=== PATIENT | male | born 2000 | race Caucasian/White ===

== ENCOUNTER 2025-01-26 12:39 | Emergency (ER) | payer MEDICAID, SELFPAY ==
[2025-01-26 12:40] VITALS: BMI 25.6
[2025-01-26 13:03] VITALS: BP 128/74; PULSE 71; RESP 18; TEMP 36.9; O2SAT 99
--- NOTE | 2025-01-26 13:24 | EDNOTE_ITS ---
<Statement entered by Paula Carrillo MD - 01/26/25 17:57> As co-signing physician, I was present and available for consult prn. I concur with the plan and care as documented by the midlevel provider. ED Dental RME/HPI General Chief complaint: Dental/Oral/Throat Stated complaint: MOUTH INFECTION x 10 DAYS, BROKE TOOTH LAST NIGHT Time Seen by Provider: 01/26/25 12:45 Source: patient Arrival date/time: 01/26/25 12:39 24-year-old male with no known medical history presents to the emergency room with a chief complaint of multiple broken teeth in his mouth x 10 days Mode of arrival: ambulatory Limitations: no limitations Related Data Previous Rx's ?Medication ?Instructions ?Recorded clindamycin HCl 300 mg capsule 300 mg PO TID 7 days #2 1 caps 01/26/25 Allergies Allergy/AdvReac Type Severity Reaction Status Date / Time cefazolin Allergy Severe HIVES Verified 01/26/25 12:42 Review of Systems Review of Systems Systems Reviewed: All systems reviewed, normal except as documented Constitutional Constitutional: Reports system reviewed and no additional complaints, except as documented, Denies fatigue, Denies fever(s), Denies headache(s) and Denies weakness Eyes Eyes: Reports system reviewed and no additional complaints, except as documented, Denies blurry vision and Denies change in vision ENT Ears, Nose, Mouth, and Throat: Reports system reviewed and no additional complaints, except as documented, Reports dental pain, Denies otalgia, Denies headache(s), Denies nasal congestion, Denies throat swelling and Denies vertigo Cardiovascular Cardiovascular: Reports system reviewed and no additional complaints, except as documented, Denies chest pain, Denies dyspnea and Denies dyspnea on exertion Respiratory Respiratory: Reports system reviewed and no additional complaints, except as documented, Denies chest congestion, Denies cough, Denies dyspnea, Denies dyspnea on exertion and Denies wheezing Gastrointestinal Gastrointestinal: Reports system reviewed and no additional complaints, except as documented, Denies abdominal pain, Denies cramping, Denies nausea and Denies vomiting Genitourinary Genitourinary: Reports system reviewed and no additional complaints, except as documented, Denies dysuria and Denies hematuria Musculoskeletal Musculoskeletal: Reports system reviewed and no additional complaints, except as documented and Denies back pain Integumentary/Breasts Skin/Breast: Reports system reviewed and no additional complaints, except as documented and Denies wounds Neurologic Neurologic: Reports system reviewed and no additional complaints, except as documented, Denies confusion, Denies headache(s), Denies lack of coordination, Denies vertigo and Denies weakness Psychiatric Psychiatric: Reports system reviewed and no additional complaints, except as documented, Denies anxiety, Denies confusion, Denies depression, Denies paranoia, Denies suicidal ideation and Denies tactile hallucinations Endocrine Endocrine: Reports system reviewed and no additional complaints, except as documented and Denies fatigue Hematologic/Lymphatic Hematologic/Lymphatic: Reports system reviewed and no additional complaints, except as documented and Denies lymphadenopathy Allergic/Immunologic Allergic/Immunologic: Reports system reviewed and no additional complaints, except as documented, Denies throat swelling, Denies urticaria and Denies wheezing Past Medical History Social History SMOKING STATUS: Never smoker ED Exam General Limitations: Present no limitations General appearance: Present alert and in no apparent distress Head Head exam: Present atraumatic Eye Eye exam: Present normal appearance, PERRL and EOMI ENT ENT exam: Present normal exam, normal oropharynx and mucous membranes moist Expanded ENT Exam Mouth exam: Absent trismus, lip swelling or tongue normal Teeth exam: Present dental caries, fractured tooth # and dental tenderness #; Absent gingival swelling Neck Neck exam: Present normal inspection, full ROM and trachea midline Chest Chest inspection: Present normal inspection and symmetric chest wall rise Respiratory Respiratory exam: Present normal lung sounds bilaterally Cardiovascular Cardiovascular exam: Present regular rate, normal rhythm and normal heart sounds Abdominal Exam Abdominal exam: Present soft and normal bowel sounds Extremities Exam Extremities exam: Present normal inspection and full ROM Back Exam Back exam: Present normal inspection and full ROM Neurological Exam Neurological exam: Present alert, oriented X3 and CN II-XII intact Psychiatric Psychiatric exam: Present normal affect and normal mood Skin Skin exam: Present warm, dry, intact and normal color Course Quality Measures none Orders Category Date Time Status Ketorolac Inj [Toradol Inj] Med 01/26/25 13:04 Discontinued 30 mg IM X1 ONE Vital Signs Vital signs: Vital Signs Temperature 98.4 F 01/26/25 13:03 Pulse Rate 71 01/26/25 13:03 Respiratory Rate 18 01/26/25 13:03 Blood Pressure 128/74 01/26/25 13:03 Pulse Oximetry (%) 99 01/26/25 13:03 Oxygen Delivery Method Room Air 01/26/25 13:03 Dental / Oral MDM Narrative MDM Narrative:: 24-year-old male with no known medical history presents to the emergency room with a chief complaint of multiple broken teeth in his mouth x 10 days Patient is hemodynamically stable and in no apparent distress Physical examination shows multiple broken teeth in the upper part of the patient's mouth. There is no trauma. Antibiotics are sent to the patient's pharmacy and the patient was educated to follow-up with his dentist Pain medication was also given to the patient Patient was discharged and educated to follow-up with primary care provider in the next 24 to 48 hours and return to the emergency room for any evidence of worsening signs or symptoms Patient data External records reviewed:: [facility] previous records Clinical information provided by:: patient Social determinants that could affect healthcare access:: none Patient has the following chronic illnesses:: No chronic illness How is presenting disease/condition affected by chronic disease/condition?: no chronic disease Evaluation data The following diagnostics were reviewed and interpreted by me:: lab results and radiology exam(s) Lab and/or radiology exams considered but not ordered:: Labs and radiology exams considered and ordered Interpretation Summary: N/A Medications / Prescriptions Medications or Prescriptions considered but not ordered:: Medication given Medication administrations:: Medication Administration History Discontinued Medications Ketorolac Tromethamine (Ketorolac Inj 60 Mg/2 Ml Vial) 30 mg IM X1 ONE Stop: 01/26/25 13:05 Last Admin: 01/26/25 13:23 Dose: Not Given Documented By: JESUSITA Non-Admin Reason: Patient Refused Medication given Consultations Consultation(s) initiated? (list below): No Diagnosis Dental Differential Diagnosis: dental caries, toothache, dental abscess and fracture of tooth Most likely diagnosis given after review of the tests above:: Fracture of tooth Admission Indicated Admission indicated?: not indicated Admission Request Was there a request for admission?: No Disposition Plan Disposition Plan: Discharge Discharge Attestation Discharge Attestation: The patient and all family members were given an opportunity to ask questions and understood the discharge instructions. Discharge instructions specifically effects, indications for sooner follow up or return to the emergency department, and the expected course of current diagnosis. Patient condition: Stable Discharge Plan Plan Patient Disposition: HOME (Self Care) Discharge Disposition comment: Stable Prescriptions/Referrals Prescriptions/Med Rec: New clindamycin HCl 300 mg capsule 300 mg PO TID 7 Days Qty: 21 0RF Problem List Clinical Impression: Fracture of tooth Patient/Caregiver Discharge Instructions Education Materials: ED Dental Trauma Additional Instructions: Please follow-up with your dentist in the next 24 to 48 hours You have multiple fractured teeth. These teeth will need to be removed or managed by the dentist Antibiotics are sent to your pharmacy please pick them up and take them as indicated For any evidence of worsening signs or symptoms return to emergency room immediately Print Language: Telugu Stand Alone Forms: Anabela Award Info., Work/School Release, Patient Portal Info Letter PA/HAM ROLLING MACHINE OPERATOR Supervising Physician PA/HAM ROLLING MACHINE OPERATOR Supervising Physician: Dr. Collins
== END 2025-01-26 13:37 | disposition home or self-care (01) ==
PROVIDERS: Emergency Provider Emergency Medicine
DX: S02.5XXA Fracture of tooth (traumatic), initial encounter for closed fracture (principal); X58.XXXA Exposure to other specified factors, initial encounter
CPT/HCPCS: 99281

== ENCOUNTER 2025-02-19 12:25 | Emergency (ER) | payer SELFPAY ==
[2025-02-19 12:26] VITALS: BMI 26.2
[2025-02-19 12:36] VITALS: BP 149/76; PULSE 74; RESP 19; TEMP 36.8; O2SAT 98
--- NOTE | 2025-02-19 12:39 | XR_ITS ---
Examination: CT brain head without contrast. 2-D sagittal coronal reconstructions Date and time of exam: February 19, 2025, 1330 hours INDICATIONS: Ground-level fall today with injury of the head, laceration head CTDI: vol (mGy): 51.2 DLP: (mGycm): 1044 Technique: Multiple CT axial sections of the brain have been obtained, 5 mm slice thickness. Contrast has not been administered. 2-D sagittal, coronal reconstructions have been obtained Low dose protocols were performed. One or more of the following dose reduction techniques were used; automated exposure control, adjustment of the mA and/or KV according to patient size, use of iterative reconstruction technique. Findings: No significant ventricular enlargement. Intra-axial or extra-axial hemorrhage density is not seen. No mass effect or midline shift Basal cisterns are not remarkable. Fourth ventricle is midline. Cranial vault intact. Impression: Negative for acute hemorrhage, mass effect or midline shift
--- NOTE | 2025-02-19 12:39 | XR_ITS ---
Examination: CT cervical spine without contrast 2-D sagittal reconstructions 2-D coronal reconstructions 3-D reconstructions. Exam date and time: February 19, 2025, 1330 hours INDICATIONS: Ground-level fall today with injury to the neck, neck pain CTDI:vol (mGy) 16.2 DLP: (mGycm) 395 Technique: Multiple 2 mm axial sections of the cervical spine have been obtained. The coronal and sagittal reconstructions have been obtained. 3-D reconstructions have been obtained. Low dose protocols were performed. One or more of the following dose reduction techniques were used; automated exposure control, adjustment of the mA and/or KV according to patient size, use of iterative reconstruction technique. Findings: Axial sections demonstrate intact base of the skull. C1 exhibit satisfactory relationship to the odontoid. No acute cervical vertebral body fracture seen. Alignment posterior spinous processes satisfactory. Impression: No acute cervical fracture.
[2025-02-19] MEDS: DIPHTH,PERTUSS(ACELL),TET VAC 0.5 ML SYR- ADULT IMi (12:52)
[2025-02-19] MEDS: LIDOCAINE/PRILOCAINE CR 5GM 5 GM TUBE TOP (12:52)
--- NOTE | 2025-02-19 14:03 | EDNOTE_ITS ---
ED Head Injury RME/HPI General Chief complaint: Head Injury Stated complaint: head injury Time Seen by Provider: 02/19/25 12:35 Arrival date/time: 02/19/25 12:25 24-year-old male presents to the emergency department today stating that he hit his head while at work today patient attained a laceration to the scalp patient reports no loss of conscious or vomiting but does report headache and neck pain Limitations: no limitations Related Data Previous Rx's ?Medication ?Instructions ?Recorded ibuprofen 800 mg tablet 800 mg PO TID PRN pain #30 t abs 02/19/25 Allergies Allergy/AdvReac Type Severity Reaction Status Date / Time cefazolin Allergy Severe HIVES Verified 02/19/25 12:27 Review of Systems Review of Systems Systems Reviewed: All systems reviewed, normal except as documented Constitutional Constitutional: Reports system reviewed and no additional complaints, except as documented, Denies fever(s) and Denies headache(s) Eyes Eyes: Reports system reviewed and no additional complaints, except as documented and Denies blurry vision ENT Ears, Nose, Mouth, and Throat: Reports system reviewed and no additional complaints, except as documented, Denies headache(s), Denies nasal congestion and Denies nasal discharge Cardiovascular Cardiovascular: Reports system reviewed and no additional complaints, except as documented, Denies chest pain and Denies dyspnea Respiratory Respiratory: Reports system reviewed and no additional complaints, except as documented, Denies chest congestion, Denies cough and Denies dyspnea Gastrointestinal Gastrointestinal: Reports system reviewed and no additional complaints, except as documented and Denies abdominal pain Integumentary/Breasts Skin/Breast: Reports system reviewed and no additional complaints, except as documented, Denies rash and Reports wounds (Laceration scalp) Neurologic Neurologic: Reports system reviewed and no additional complaints, except as documented, Reports as per HPI and Denies headache(s) Past Medical History Social History SMOKING STATUS: Never smoker ED Exam General Limitations: Present no limitations General appearance: Present alert and in no apparent distress Expanded Head Exam Head image: 2 1. 6cm scalp laceration Eye Eye exam: Present normal appearance, PERRL and EOMI ENT ENT exam: Present normal exam, normal oropharynx and mucous membranes moist Neck Neck exam: Present normal inspection, full ROM and trachea midline Chest Chest inspection: Present normal inspection and symmetric chest wall rise Respiratory Respiratory exam: Present normal lung sounds bilaterally Cardiovascular Cardiovascular exam: Present regular rate, normal rhythm and normal heart sounds Abdominal Exam Abdominal exam: Present soft and normal bowel sounds Extremities Exam Extremities exam: Present normal inspection and full ROM Back Exam Back exam: Present normal inspection and full ROM Neurological Exam Neurological exam: Present alert, oriented X3 and CN II-XII intact Psychiatric Psychiatric exam: Present normal affect and normal mood Skin Skin exam: Present warm, dry, intact and normal color Course Quality Measures none Orders Category Date Time Status Set Up Suture Tray STAT Care 02/19/25 12:39 Completed Wound Care NOW Care 02/19/25 12:[address] cervical spine wo con Stat Exams 02/19/25 12:[address] head/brain wo con Stat Exams 02/19/25 12:39 Completed Lidocaine/Prilocaine Cr 5Gm [Emla Cr] Med 02/19/25 12:40 Discontinued See Dose Instructions TOP X1 ONE TET,DIP/PERT AC (Adult)-Tdap [Boostrix Adult (Tdap) Med 02/19/25 12:39 Discontinued Vacc] 0.5 ml IMI .ONCE ONE Vital Signs Vital signs: Vital Signs Temperature 98.2 F 02/19/25 12:36 Pulse Rate 74 02/19/25 12:36 Respiratory Rate 19 02/19/25 12:36 Blood Pressure 149/76 H 02/19/25 12:36 Pulse Oximetry (%) 98 02/19/25 12:36 Oxygen Delivery Method Room Air 02/19/25 12:36 O2 saturation 98% on room air within normal limits PROCEDURES: Laceration Laceration 1: Site: other (Scalp) Size (cm): 6 Description: linear Depth: simple, single layer Local Anesthetic: other anesthetic (Emla) Amount of anesthesia used (mL): 5 Pre-repair: irrigated extensively and deep structures intact Skin layer closed with: other (Jaylene x 16) Head Injury MDM Narrative MDM Narrative:: 24-year-old male presents to the emergency department today stating that he hit his head while at work today patient attained a laceration to the scalp patient reports no loss of conscious or vomiting but does report headache and neck pain Clinically patient well-appearing does not appear ill or toxic no acute distress Patient does have laceration scalp Wound irrigated copiously laceration repaired with stapled after Emla applied. Tdap updated Patient instructed have jaylene removed in 10 to 14 days Patient discharged home in no distress to follow-up with Workmen's Compensation doctor in the next 24 to 48 hours and for any worsening symptoms to return to the ER immediately Patient data External records reviewed:: [facility] previous records Clinical information provided by:: patient Social determinants that could affect healthcare access:: none Patient has the following chronic illnesses:: None How is presenting disease/condition affected by chronic disease/condition?: no chronic disease Evaluation data The following diagnostics were reviewed and interpreted by me:: radiology exam(s) Lab and/or radiology exams considered but not ordered:: Radiology obtained Interpretation Summary: Reviewed by me Medications / Prescriptions Medications or Prescriptions considered but not ordered:: Given Medication administrations:: Medication Administration History Discontinued Medications Diphtheria/Tetanus/Acell Pertussis (Diphth,Pertuss(Acell),Tet Vac 0.5 Ml Syr- Adult) 0.5 ml IMi .ONCE ONE Stop: 02/19/25 12:40 Last Admin: 02/19/25 12:52 Dose: 0.5 ml Documented By: Lidocaine/Prilocaine (Lidocaine/Prilocaine Cr 5gm 5 Gm Tube) 0 gm TOP X1 ONE Stop: 02/19/25 12:41 Last Admin: 02/19/25 12:52 Dose: 5 gm Documented By: Given Consultations Consultation(s) initiated? (list below): No Diagnosis Differential diagnosis head injury: concussion without loss of consciousness, subdural hematoma and concussion with loss of consciousness Most likely diagnosis given after review of the tests above:: Closed head injury Admission Indicated Admission indicated?: not indicated Admission Request Was there a request for admission?: No Disposition Plan Disposition Plan: Discharge Discharge Attestation Discharge Attestation: The patient and all family members were given an opportunity to ask questions and understood the discharge instructions. Discharge instructions specifically effects, indications for sooner follow up or return to the emergency department, and the expected course of current diagnosis. Patient condition: Stable Discharge Plan Plan Patient Disposition: HOME (Self Care) Discharge Disposition comment: Stable Prescriptions/Referrals Prescriptions/Med Rec: New ibuprofen 800 mg tablet 800 mg PO TID PRN (Reason: pain) Qty: 30 0RF Referrals: Alexis Irwin MD [Primary Care Provider, Family Practice] - In 1 week Problem List Clinical Impression: Laceration of scalp, Work related injury Patient/Caregiver Discharge Instructions Education Materials: ED Head Injury (Adult) Additional Instructions: Please follow up with your primary care doctor in the next 24-48hrs for any worsening symptoms return here immediately Print Language: Japanese Stand Alone Forms: Anabela Award Info., Patient Portal Info Letter Vaccines Vaccines Given During Stay: TDaP PA/FIBER PRODUCT CUTTING MACHINE OPERATOR Supervising Physician PA/FIBER PRODUCT CUTTING MACHINE OPERATOR Supervising Physician: DR SCHMID
== END 2025-02-19 14:54 | disposition home or self-care (01) ==
PROVIDERS: Emergency Provider Nurse Practitioner Primary Care; PCP Family Medicine
DX: S01.01XA Laceration without foreign body of scalp, initial encounter (principal); W22.8XXA Striking against or struck by other objects, initial encounter; Y93.89 Activity, other specified; Y92.538 Other ambulatory health services establishments as the place of occurrence of the external cause; Y99.0 Civilian activity done for income or pay; Z23 Encounter for immunization
CPT/HCPCS: 12002; 70450; 72125; 90471; 90715; 99282